=== PATIENT | female | born 1985 | race American Indian/Alaskan Native ===

== ENCOUNTER 2021-10-26 11:54 | Outpatient (CLI) | payer MEDICAID ==
[2021-10-27 03:06] VITALS: BP 115/57
== END 2021-10-26 17:25 | disposition home or self-care (01) ==
LOC: LAB 11:54 → APU 17:01 → LAB 17:25
PROVIDERS: ATTEND Advanced Practice Midwife
DX: O26.893 Other specified pregnancy related conditions, third trimester (principal); O09.523 Supervision of elderly multigravida, third trimester; Z67.21 Type B blood, Rh negative; Z3A.31 31 weeks gestation of pregnancy
CPT/HCPCS: 86850; 86900; 86901; 96372; J2790

== ENCOUNTER 2021-10-31 15:29 | Outpatient (CLI) | payer MEDICAID ==
[2021-10-31 17:20] VITALS: BP 102/53
--- NOTE | 2021-10-31 18:16 | Ultrasound Report ---
Limited OB Ultrasound HISTORY: FHR. TECHNIQUE: Grayscale and color imaging performed. COMPARISON: None FINDINGS: Single viable intrauterine gestation with breech presentation. No cardiac activity id entified. IMPRESSION: Lack of cardiac activity suggests demise. Signer Name: Rufus Deng MD Signed: 10/31/2021 6:12 PM Workstation Name: [id number]
== END 2021-10-31 18:48 | disposition home or self-care (01) ==
LOC: TRG 15:29 → APU 15:32 → TRG 18:48
PROVIDERS: ATTEND Obstetrics & Gynecology
DX: O36.8320 Maternal care for abnormalities of the fetal heart rate or rhythm, second trimester, not applicable or unspecified (principal); Z3A.21 21 weeks gestation of pregnancy
CPT/HCPCS: 76815